=== PATIENT | female | born 1970 | race Caucasian/White ===

== ENCOUNTER → 2017-04-04 | Outpatient (CLI) | payer BC ==
[~2017-04-04] MED LIST: ADVAIR 250/501 DISK IH; AMOXICILLIN875 MG PO; ASPIR 8181 M1 PO; ASPIRIN EC325 MG PO; CALCIUM500 M4 PO; CLOPIDOGREL75 MG PO; CRANBERRY 4001 EAC1 PO; GABAPENTIN400 MG PO; LIPITOR20 MG PO; LISINOPRIL10 MG PO; LISINOPRIL5 MG PO; LOPRESSOR25 MG PO; LORCET 5-325 M1 EACH PO; METOPROLOL TART25 MG PO; NICOTINE PATCH1 EAC2 TD; NOHOMEMEDS; PERCOCET 7.51 TABLET PO; PLAVIX75 MG PO; SINGULAIR10 MG PO; ST. JOSEPH ASPI81 MG PO; TYLENOL EXTRA500 MG PO; VITAMIN C100 MG PO; XARELTO20 MG PO; ZOCOR20 MG PO
== END | disposition home or self-care (01) ==
LOC: EKG 09:37
DX: I05.1 Rheumatic mitral insufficiency (principal); I06.1 Rheumatic aortic insufficiency; I09.89 Other specified rheumatic heart diseases; R94.31 Abnormal electrocardiogram [ECG] [EKG]
CPT/HCPCS: 93306